=== PATIENT | female | born 1980 | race American Indian/Alaskan Native ===

== ENCOUNTER 2017-03-29 02:01 | Emergency (ER) | payer BC ==
[2017-03-29 03:09] LABS: Basophils % (Auto) 0.6 % (0.0-1.8); Eosinophils % (Auto) 1.5 % (0.0-4.3); Mean Corpuscular HGB Conc 30 % (30-34); Mean Corpuscular Volume 76 fl (79-97); Platelet Count 470 K/mm3 (140-440); Red Blood Count 4.11 M/mm3 (3.65-5.03); Red Cell Distribution Width 18.6 % (13.2-15.2); White Blood Count 7.2 K/mm3 (4.5-11.0)
[2017-03-29 03:10] LABS: Hematocrit 31.2 % (30.3-42.9); Hemoglobin 9.4 gm/dl (10.1-14.3); Mean Corpuscular Hemoglobin 23 pg (28-32)
[2017-03-29 03:35] LABS: Anion Gap 17 mmol/L; BUN/Creatinine Ratio 24; Blood Urea Nitrogen 17 mg/dL (7-17); Calcium 9.1 mg/dL (8.4-10.2); Carbon Dioxide 23 mmol/L (22-30); Chloride 102.8 mmol/L (98-107); Glucose 86 mg/dL (65-100); Potassium 4.5 mmol/L (3.6-5.0); Sodium 138 mmol/L (137-145)
[2017-03-29 05:01] LABS: Mucus,Urine FEW /HPF
[2017-03-29 05:02] LABS: Bilirubin,Urine NEG (Negative); Blood,Urine MOD (Negative); Ketones,Urine NEG (Negative); Leukocyte Esterase,Urine NEG (Negative); Nitrite,Urine NEG (Negative); Protein,Urine <15 mg/dL mg/dL (Negative); Urobilinogen,Urine < 2.0 mg/dL (<2.0)
[2017-03-29 06:07] VITALS: BP 134/79
[2017-03-29] MEDS ORDERED: NORCO 5/325 PO ONE (06:47)
[2017-03-29] MEDS ORDERED: TORADOL IM ONE (06:47)
[2017-03-29] MEDS ORDERED: NACL 0.9% 1000 ML 1,000 ML IV ONE (07:40)
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
--- NOTE | 2017-03-29 07:43 | Cat Scan Report ---
CT OF THE ABDOMEN AND PELVIS WITHOUT CONTRAST HISTORY: Flank pain, hematuria. TECHNIQUE: Helical CT without contrast. Sagittal and coronal reformatted images. FINDINGS: There is a punctate nonobstructing right renal stone near midpole on image 118, series 2. Otherwise, the kidneys, ureters and bladder are within normal limits. No evidence for hydronephrosis, cystic disease or obvious mass. Normal adrenal glands. The unenhanced CT appearance of the liver, biliary system, pancreas, spleen, aorta, bowel loops and appendix are within normal limits. The uterus and adnexa are unremarkable. Trace pelvic ascites is noted. No evidence for adenopathy, abscess, inflammatory changes or free air. The bony structures are within normal limits. The lung bases are clear. Normal heart size. IMPRESSION: Punctate nonobstructing stone near midpole of the right kidney. No ureteral stones or hydronephrosis identified. Trace pelvic ascites.
== END 2017-03-29 09:41 | disposition home or self-care (01) ==
LOC: ED 02:01
DX: N20.0 Calculus of kidney (principal); R18.8 Other ascites; Z88.8 Allergy status to other drugs, medicaments and biological substances
CPT/HCPCS: 36415; 74176; 80048; 81001; 84703; 85025; 96360; 96372; 99284; J1885; J7030